=== PATIENT | male | born 1975 | race African-American/Black ===

== ENCOUNTER 2017-10-01 09:14 | Emergency (ER) | payer OTHER ==
[2017-10-01 09:29] VITALS: BP 168/87; PULSE 58; RESP 20; TEMP 98
--- NOTE | 2017-10-01 10:03 | ED ---
URI HPI - General Chief Complaint: Upper Respiratory Infection Stated Complaint: Congestion Time Seen by Provider: 10/01/17 09:44 Source: patient, RN notes reviewed Mode of arrival: ambulatory Limitations: no limitations - History of Present Illness Initial Comments: This a 42-year-old male presents emergency Department chief complaint of sinus congestion, cough and congestion congestion. Patient states symptoms are present for 4 days worsening. He has tried [id number] cough and cold medications no relief. Patient states that he's had fevers and chills at home. He has no prior medical history. Denies any lung disease. Patient states cough is productive with phlegm. No sick contacts. - Related Data Home Medications Medication Instructions Recorded Confirmed Acetaminophen [Tylenol] 1,000 mg PO Q6H PRN 10/01/17 10/01/17 Previous Rx's Medication Instructions Recorded Amoxicillin/Potassium Clav 1 tab PO Q12HR #20 tab 10/01/17 [Augmentin 875-125 Tablet] predniSONE 50 mg PO DAILY #5 tab 10/01/17 Allergies Allergy/AdvReac Type Severity Reaction Status Date / Time No Known Allergies Allergy Verified 10/01/17 09:45 Review of Systems ROS Statement: Those systems with pertinent positive or pertinent negative responses have been documented in the HPI. ROS Other: All systems not noted in ROS Statement are negative. Past Medical History Past Medical History: No Reported History History of Any Multi-Drug Resistant Organisms: None Reported Past Surgical History: Orthopedic Surgery Past Psychological History: No Psychological Hx Reported Smoking Status: Current every day smoker Past Alcohol Use History: Occasional Past Drug Use History: Marijuana General Exam Limitations: no limitations General appearance: alert, in no apparent distress Head exam: Present: atraumatic, normocephalic, normal inspection Eye exam: Present: normal appearance, PERRL, EOMI. Absent: scleral icterus, conjunctival injection, periorbital swelling ENT exam: Present: normal exam, normal oropharynx, mucous membranes moist, TM's normal bilaterally Neck exam: Present: normal inspection, full ROM. Absent: tenderness, meningismus, lymphadenopathy Respiratory exam: Present: normal lung sounds bilaterally. Absent: respiratory distress, wheezes, rales, rhonchi, stridor Cardiovascular Exam: Present: regular rate, normal rhythm, normal heart sounds. Absent: systolic murmur, diastolic murmur, rubs, gallop, clicks GI/Abdominal exam: Present: soft, normal bowel sounds. Absent: distended, tenderness, guarding, rebound, rigid Course Vital Signs 10/01/17 09:28 Temperature 98.0 F Pulse Rate 58 L Respiratory 20 Rate Blood Pressure 168/87 O2 Sat by Pulse 99 Oximetry Medical Decision Making - Medical Decision Making 42-year-old male presented unresponsive for cough and congestion. X-ray reviewed no acute abnormality. Patient will be treated for acute sinusitis and bronchitis. Patient's will be started on Augmentin and prednisone. Return parameters discussed. Disposition Clinical Impression: Bronchitis, Sinusitis Disposition: HOME SELF-CARE Condition: Stable Instructions: Upper Respiratory Infection (ED) Additional Instructions: Please return to the Emergency Department if symptoms worsen or any other concerns. Prescriptions: Amoxicillin/Potassium Clav [Augmentin 875-125 Tablet] 1 tab PO Q12HR #20 tab predniSONE 50 mg PO DAILY #5 tab Is patient prescribed a controlled substance at discharge?: No Referrals: None,Stated [Primary Care Provider] - 1-2 days
--- NOTE | 2017-10-01 10:17 | XR ---
EXAMINATION TYPE: XR chest 2V DATE OF EXAM: 10/01/2017 COMPARISON: NONE HISTORY: Chest pain TECHNIQUE: Frontal and lateral views of the chest are obtained. FINDINGS: There is no focal air space opacity. No evidence for pneumothorax. No pleural effusion. The cardiac silhouette size is within normal limits. The osseous structures are grossly intact. IMPRESSION: 1. No acute cardiopulmonary process.
== END 2017-10-01 10:53 | disposition home or self-care (01) ==
LOC: EC 09:14
DX: J40 Bronchitis, not specified as acute or chronic (principal); J01.90 Acute sinusitis, unspecified; F17.200 Nicotine dependence, unspecified, uncomplicated
CPT/HCPCS: 71046; 99283

== ENCOUNTER 2018-03-09 08:26 | Emergency (ER) | payer OTHER ==
[2018-03-09 08:43] VITALS: BP 133/88; PULSE 63; RESP 18; TEMP 98.6
--- NOTE | 2018-03-09 08:59 | ED ---
URI HPI - General Chief Complaint: Upper Respiratory Infection Stated Complaint: Cold Time Seen by Provider: 03/09/18 08:44 Source: patient, RN notes reviewed Mode of arrival: ambulatory Limitations: no limitations - History of Present Illness Initial Comments: This a 42-year-old male presents emergency Department with chief complaint cough congestion. Patient states started last few days progressively getting worse. Patient feels sinus pressure, sinus congestion. He does have a cough which is productive. Patient states he aches all over. Has no known fever. Denies any ear pain states there is fullness and pressure. Patient states that he has had no relief with [id number] medications. Has NO KNOWN DRUG ALLERGIES. Patient had multiple sick contacts at work. - Related Data Previous Rx's Medication Instructions Recorded Amoxicillin/Potassium Clav 1 tab PO Q12HR #20 tab 03/09/18 [Augmentin 875-125 Tablet] predniSONE 50 mg PO DAILY #5 tab 03/09/18 Allergies Allergy/AdvReac Type Severity Reaction Status Date / Time No Known Allergies Allergy Verified 03/09/18 09:00 Review of Systems ROS Statement: Those systems with pertinent positive or pertinent negative responses have been documented in the HPI. ROS Other: All systems not noted in ROS Statement are negative. Past Medical History Past Medical History: No Reported History History of Any Multi-Drug Resistant Organisms: None Reported Past Surgical History: Orthopedic Surgery Past Psychological History: No Psychological Hx Reported Smoking Status: Current every day smoker Past Alcohol Use History: Daily Past Drug Use History: Marijuana General Exam Limitations: no limitations General appearance: alert, in no apparent distress Head exam: Present: atraumatic, normocephalic, normal inspection Eye exam: Present: normal appearance, PERRL, EOMI. Absent: scleral icterus, conjunctival injection, periorbital swelling ENT exam: Present: normal oropharynx, mucous membranes moist, TM's normal bilaterally, normal external ear exam. Absent: normal exam (Mild sinus tenderness) Neck exam: Present: normal inspection, full ROM. Absent: tenderness, meningismus, lymphadenopathy Respiratory exam: Present: normal lung sounds bilaterally. Absent: respiratory distress, wheezes, rales, rhonchi, stridor Cardiovascular Exam: Present: regular rate, normal rhythm, normal heart sounds. Absent: systolic murmur, diastolic murmur, rubs, gallop, clicks Course Vital Signs 03/09/18 03/09/18 08:39 08:50 Temperature 98.6 F Pulse Rate 63 Respiratory 18 18 Rate Blood Pressure 133/88 O2 Sat by Pulse 100 Oximetry Medical Decision Making - Medical Decision Making 42-year-old male present emergency from for cough and cold-like symptoms. Patient's chest x-ray reviewed no acute abnormality. Patient treated with Augmentin presented this time patient take [id number] cough and cold medications return parameters discussed. Disposition Clinical Impression: Bronchitis, Sinusitis Disposition: HOME SELF-CARE Condition: Stable Instructions: Upper Respiratory Infection (ED) Additional Instructions: Please return to the Emergency Department if symptoms worsen or any other concerns. Prescriptions: Amoxicillin/Potassium Clav [Augmentin 875-125 Tablet] 1 tab PO Q12HR #20 tab predniSONE 50 mg PO DAILY #5 tab Is patient prescribed a controlled substance at d/c from ED?: No Referrals: None,Stated [Primary Care Provider] - 1-2 days Time of Disposition: 10:15
--- NOTE | 2018-03-09 09:21 | XR ---
EXAMINATION TYPE: XR chest 2V DATE OF EXAM: 03/09/2018 COMPARISON: Prior chest x-ray October 01, 2017. HISTORY: Cough congestion and body aches for 3 days. TECHNIQUE: Frontal and lateral views of the chest are obtained. FINDINGS: There is no focal air space opacity, pleural effusion, or pneumothorax seen. The cardiac silhouette size is within normal limits. The osseous structures are intact. IMPRESSION: No suspicious acute pulmonary process. No significant change from prior.
== END 2018-03-09 10:37 | disposition home or self-care (01) ==
LOC: EC 08:26
DX: J40 Bronchitis, not specified as acute or chronic (principal); J32.9 Chronic sinusitis, unspecified; F17.200 Nicotine dependence, unspecified, uncomplicated
CPT/HCPCS: 71046; 99283

== ENCOUNTER 2018-09-07 16:53 | Emergency (ER) | payer BC, OTHER ==
[2018-09-07 16:57] VITALS: TEMP 98.4
[2018-09-07 18:06] LABS: Basophils % (A) 1 %; Eosinophils # (A) 0.2 k/uL (0-0.7); Eosinophils % (A) 3 %; HCT 48.6 % (39.0-53.0); HGB 15.4 gm/dL (13.0-17.5); Lymphocytes # (A) 1.5 k/uL (1.0-4.8); Lymphocytes % (A) 26 %; MCH 23.7 pg (25.0-35.0); MCHC 31.7 g/dL (31.0-37.0); MCV 74.7 fL (80.0-100.0); Mean Platelet Volume 7.3; Microcytosis Slight; Monocytes # (A) 0.3 k/uL (0-1.0); Monocytes % (A) 6 %; Neutrophils # (A) 3.6 k/uL (1.3-7.7); Neutrophils % (A) 62 %; Platelet Count 231 k/uL (150-450); RDW 15.6 % (11.5-15.5); WBC 5.8 k/uL (3.8-10.6)
[2018-09-07 18:11] LABS: Albumin 4.2 g/dL (3.5-5.0); Calcium 9.2 mg/dL (8.4-10.2); Magnesium 1.8 mg/dL (1.6-2.3); Potassium 4.3 mmol/L (3.5-5.1); Total Bilirubin 1.1 mg/dL (0.2-1.3); Total Protein 7.5 g/dL (6.3-8.2)
--- NOTE | 2018-09-07 18:18 | CT ---
EXAMINATION TYPE: CT brain wo con DATE OF EXAM: 09/07/2018 COMPARISON: Headache HISTORY: Headache x [address] DLP: 1084.4 mGycm. Automated Exposure Control for Dose Reduction was Utilized. TECHNIQUE: CT scan of the head is performed without contrast. FINDINGS: Ventricles and sulci appear normal. There is no mass effect nor midline shift. There is no sign of intracranial hemorrhage. Calvarium is intact. IMPRESSION: Normal head CT scan.
--- NOTE | 2018-09-07 18:22 | XR ---
EXAMINATION TYPE: XR chest 2V DATE OF EXAM: 09/07/2018 COMPARISON: 03/09/2018 HISTORY: Hypertension TECHNIQUE: Frontal and lateral views of the chest are obtained. FINDINGS: heart and mediastinum are normal. Lungs are clear. Diaphragm is normal. Bony thorax appear s normal.. IMPRESSION: Normal chest. No change.
--- NOTE | 2018-09-07 19:16 | ED ---
General Adult HPI - General Chief complaint: Recheck/Abnormal Lab/Rx Stated complaint: High blood pressure Time Seen by Provider: 09/07/18 17:00 Source: patient Mode of arrival: ambulatory Limitations: no limitations - History of Present Illness Initial comments: Patient is a 43-year-old male who presents to the hospital with complaint of high blood pressure and headache. The patient was told before by his primary care physician that he did have high blood pressure and would have to have it monitored. He was never started on any medications. States that over the past several weeks his significant other has been taking his blood pressure. She is a medical equipment technician. They noted that his blood pressures have been running in the 150s systolic. Today the patient developed a headache. He denies any visual changes. No neck pain or stiffness. No fevers or chills. Denies any unilateral numbness or weakness. No confusion or slurred speech. The significant other did take the patient's blood pressure and it was noted to be in the 170 systolic. Because of this they did present to the emergency department for evaluation. Patient denies any chest pain or chest palpitations. No shortness of breath. No abdominal pain. Denies any changes in bowel or bladder habits. 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 ROS Other: All systems not noted in ROS Statement are negative. Past Medical History Past Medical History: No Reported History History of Any Multi-Drug Resistant Organisms: None Reported Past Surgical History: Orthopedic Surgery Past Psychological History: No Psychological Hx Reported Smoking Status: Current every day smoker Past Alcohol Use History: Daily Past Drug Use History: Marijuana General Exam Limitations: no limitations General appearance: alert, in no apparent distress Head exam: Present: atraumatic, normocephalic, normal inspection Eye exam: Present: normal appearance, PERRL, EOMI. Absent: scleral icterus, conjunctival injection, periorbital swelling ENT exam: Present: normal exam, mucous membranes moist Neck exam: Present: normal inspection. Absent: tenderness, meningismus, lymphadenopathy Respiratory exam: Present: normal lung sounds bilaterally. Absent: respiratory distress, wheezes, rales, rhonchi, stridor Cardiovascular Exam: Present: regular rate, normal rhythm, normal heart sounds. Absent: systolic murmur, diastolic murmur, rubs, gallop, clicks GI/Abdominal exam: Present: soft, normal bowel sounds. Absent: distended, tenderness, guarding, rebound, rigid Extremities exam: Present: normal inspection, full ROM, normal capillary refill. Absent: tenderness, pedal edema, joint swelling, calf tenderness Back exam: Present: normal inspection Neurological exam: Present: alert, oriented X3, CN II-XII intact Psychiatric exam: Present: normal affect, normal mood Skin exam: Present: warm, dry, intact, normal color. Absent: rash Course Vital Signs 09/07/18 09/07/18 09/07/18 16:54 17:46 18:14 Temperature 98.4 F Pulse Rate 63 Respiratory 18 18 Rate Blood Pressure 157/109 144/110 152/105 O2 Sat by Pulse 99 Oximetry 09/07/18 19:35 Temperature Pulse Rate 88 Respiratory 16 Rate Blood Pressure 147/104 O2 Sat by Pulse Oximetry EKG Findings - EKG Comments: EKG Findings:: EKG demonstrates a normal sinus rhythm - EKG Results: EKG: sinus rhythm Medical Decision Making - Medical Decision Making The patient's was seen in room 17. He did have a 12-lead EKG performed which demonstrated normal sinus rhythm without acute ST segment elevations or depressions concerning for ischemia or infarction. We did recommend laboratory studies, chest x-ray and a CT of the patient's brain. Upon return results they're discuss with the patient. I did discuss the diagnosis, differential d iagnosis and treatment options. I did recommend that the patient follow up with his primary care physician for further treatment options. The patient does not have a primary care physician at this time. He is requesting initiation of a blood pressure medication. I did inform him that I can start him on a low-dose amlodipine however he will have to follow up with the primary care physician for further monitoring. I instructed him that there may be side effects from the medication. His dose may need to be altered or the medication may need to be changed. It is very important that he follow-up. The patient did understand this. They do have a primary care physician in mind. If the patient has any new or worsening symptoms, he should return to the emergency room. The patient was then discharged home in stable condition. - Differential Diagnosis Essential hypertension, cephalgia - Lab Data Result diagrams: 09/07/18 17:45 09/07/18 17:45 Lab Results 09/07/18 09/07/18 09/07/18 Range/Units 17:45 17:45 17:45 WBC 5.8 (3.8-10.6) k/uL RBC 6.50 H (4.30-5.90) m/uL Hgb 15.4 (13.0-17.5) gm/dL Hct 48.6 (39.0-53.0) % MCV 74.7 L (80.0-100.0) fL MCH 23.7 L (25.0-35.0) pg MCHC 31.7 (31.0-37.0) g/dL RDW 15.6 H (11.5-15.5) % Plt Count 231 (150-450) k/uL Neutrophils % 62 % Lymphocytes % 26 % Monocytes % 6 % Eosinophils % 3 % Basophils % 1 % Neutrophils # 3.6 (1.3-7.7) k/uL Lymphocytes # 1.5 (1.0-4.8) k/uL Monocytes # 0.3 (0-1.0) k/uL Eosinophils # 0.2 (0-0.7) k/uL Basophils # 0.0 (0-0.2) k/uL Microcytosis Slight Sodium 140 (137-145) mmol/L Potassium 4.3 (3.5-5.1) mmol/L Chloride 107 (98-107) mmol/L Carbon Dioxide 27 (22-30) mmol/L Anion Gap 6 mmol/L BUN 11 (9-20) mg/dL Creatinine 1.18 (0.66-1.25) mg/dL Est GFR (CKD-EPI)AfAm 86 (>60 ml/min/1.73 sqM) Est GFR (CKD-EPI)NonAf 75 (>60 ml/min/1.73 sqM) Glucose 106 H (74-99) mg/dL Calcium 9.2 (8.4-10.2) mg/dL Magnesium 1.8 (1.6-2.3) mg/dL Total Bilirubin 1.1 (0.2-1.3) mg/dL AST 20 (17-59) U/L ALT 20 L (21-72) U/L Alkaline Phosphatase 81 (38-126) U/L Troponin I <0.012 (0.000-0.034) ng/mL Total Protein 7.5 (6.3-8.2) g/dL Albumin 4.2 (3.5-5.0) g/dL - EKG Data -: EKG Interpreted by Me EKG shows normal: sinus rhythm When compared to previous EKG there are: previous EKG unavailable - Radiology Data Radiology results: report reviewed Chest x-ray and CT of the brain demonstrated no acute findings Disposition Clinical Impression: Headache, Hypertension Disposition: HOME SELF-CARE Condition: Good Instructions (If sedation given, give patient instructions): Chronic Hypertension (ED) Additional Instructions: Please follow-up with your primary care physician regarding your high blood pressure. They will need to monitor the medication that you have been placed on. If you have any new or worsening symptoms or bad side effects to the medication, please stop taking it and return to the emergency room. Prescriptions: amLODIPine [Norvasc] 5 mg PO DAILY #14 tab Is patient prescribed a controlled substance at d/c from ED?: No Referrals: None,Stated [Primary Care Provider] - 1-2 days Time of Disposition: 19:16
[2018-09-07 19:36] VITALS: BP 147/104; PULSE 88; RESP 16
== END 2018-09-07 19:35 | disposition home or self-care (01) ==
LOC: EC 16:53
DX: I10 Essential (primary) hypertension (principal); R51 Headache; F17.200 Nicotine dependence, unspecified, uncomplicated; Z79.899 Other long term (current) drug therapy
CPT/HCPCS: 36415; 70450; 71046; 80053; 83735; 84484; 85025; 93005; 99284

== ENCOUNTER 2019-05-09 20:12 | Emergency (ER) | payer OTHER ==
[2019-05-09 20:16] VITALS: TEMP 98.7
[2019-05-09 21:38] VITALS: BP 166/107; PULSE 59; RESP 18
[2019-05-09] MEDS ORDERED: amLODIPine 5 MG TAB PO STA (21:53)
--- NOTE | 2019-05-09 21:56 | ED ---
General Adult HPI - General Chief complaint: Headache Stated complaint: Blurred Vision, High Blood Pressure Time Seen by Provider: 05/09/19 21:22 Source: patient Mode of arrival: ambulatory Limitations: no limitations - History of Present Illness Initial comments: Bran is a 43-year-old -[place] gentleman with a history of hypertension who presents the emergency department today reporting that he is concerned that his blood pressure is elevated. Patient reports that he hasn't had his antihypertensives were 4-6 weeks. He reports that intermittently over the past month he has experienced occasional headache, blurred vision. He states that today he was feeling unwell discussed it with his encouraged him to come to the ER for evaluation and a new prescriptive shivers antihypertensive. Patient reports he was previously on amlodipine 5 mg daily and his blood pressure was well managed, he reports that he ran out 46 weeks ago doesn't have insurance so he had attempted to buy any more. Patient denies any chest pain or shortness of breath. He denies any vision change day. He reports he has a mild headache but it improved after Excedrin. - Related Data Home Medications Medication Instructions Recorded Confirmed Acetaminophen [Tylenol Extra 1,500 mg PO ONCE 09/07/18 09/07/18 Strength] Previous Rx's Medication Instructions Recorded amLODIPine [Norvasc] 5 mg PO DAILY #14 tab 09/07/18 amLODIPine [Norvasc] 5 mg PO DAILY #28 tab 05/09/19 amLODIPine [Norvasc] 5 mg PO DAILY #30 tab 05/09/19 Allergies Allergy/AdvReac Type Severity Reaction Status Date / Time No Known Allergies Allergy Verified 05/09/19 20:16 Review of Systems ROS Statement: Those systems with pertinent positive or pertinent negative responses have been documented in the HPI. ROS Other: All systems not noted in ROS Statement are negative. Past Medical History Past Medical History: Hypertension History of Any Multi-Drug Resistant Organisms: None Reported Past Surgical History: Orthopedic Surgery Past Psychological History: No Psychological Hx Reported Smoking Status: Current every day smoker Past Alcohol Use History: Daily Past Drug Use History: Marijuana General Exam - General Exam Comments Initial Comments: Physical Exam GENERAL: Patient is well-developed and well-nourished. Patient is nontoxic and well-hydrated and is in no distress. HENT: Normocephalic, Atraumatic. TMs normal bilaterally EYES: PERRL, EOMI No papilledema PULMONARY: Unlabored respirations. No audible rales rhonchi or wheezing was noted. CARDIOVASCULAR: There is a regular rate and rhythm without any murmurs gallops or rubs. ABDOMEN: Soft and nontender with normal bowel sounds. SKIN: Skin is clear with no lesions or rashes and otherwise unremarkable. : Deferred NEUROLOGIC: Patient is alert and oriented x3. Moving all extremities spontaneously MUSCULOSKELETAL: Normal extremities with adequate strength and full range of motion. No lower extremity swelling or edema. No calf tenderness. PSYCHIATRIC: Normal psychiatric evaluation. Limitations: no limitations Course Vital Signs 05/09/19 05/09/19 20:13 21:04 Temperature 98.7 F Pulse Rate 77 59 L Respiratory 20 18 Rate Blood Pressure 164/120 166/107 O2 Sat by Pulse 96 100 Oximetry Medical Decision Making - Medical Decision Making The patient was seen and evaluated history is obtained from the patient Patient was hypertensive on arrival however blood pressures improving. Patient has had a full workup in the past for hypertension, at this time is been noncompliant with medication and experiencing a vague headache. Headache is intermittent improves with Excedrin. At this time the patient is comfortable with the plan for discharge home. Repeat P dose of amlodipine was ordered here in the emergency department. A perception for 4 weeks of amlodipine was prescribed. All questions pertaining care were answered return parameters discussed patient a trauma stable condition. Disposition Clinical Impression: Hypertension Disposition: HOME SELF-CARE Condition: Stable Instructions (If sedation given, give patient instructions): Chronic Hypertension (DC) Prescriptions: amLODIPine [Norvasc] 5 mg PO DAILY #28 tab amLODIPine [Norvasc] 5 mg PO DAILY #30 tab Is patient prescribed a controlled substance at d/c from ED?: No Referrals: None,Stated [Primary Care Provider] - 1-2 days
== END 2019-05-09 22:04 | disposition home or self-care (01) ==
LOC: EC 20:12
DX: I10 Essential (primary) hypertension (principal); R51 Headache; F17.200 Nicotine dependence, unspecified, uncomplicated; Z91.14 Patient's other noncompliance with medication regimen
CPT/HCPCS: 99283

== ENCOUNTER 2019-08-09 07:09 | Emergency (ER) | payer OTHER ==
[2019-08-09 07:18] VITALS: TEMP 99.4
[2019-08-09] MEDS ORDERED: IPRATROPIUM-ALBUTEROL 3 ML NEB INHALATION STA (07:30)
[2019-08-09] MEDS ORDERED: KETOROLAC 30 MG/ML 1 ML VIAL IVP STA (07:30)
[2019-08-09] MEDS ORDERED: KETOROLAC 30 MG/ML 1 ML VIAL IM STA (07:30)
[2019-08-09] MEDS ORDERED: DEXAMETHASONE SOD PHOSPHATE 10 MG/ML 1 ML VIAL IV STA (07:31)
[2019-08-09] MEDS ORDERED: SODIUM CHLORIDE 0.9% 1,000 ML IV STA (07:31)
--- NOTE | 2019-08-09 07:34 | ED ---
General Adult HPI - General Chief complaint: Upper Respiratory Infection Stated complaint: Body ache, headache Time Seen by Provider: 08/09/19 07:20 Source: patient Mode of arrival: ambulatory Limitations: no limitations - History of Present Illness Initial comments: Dictation was produced using [employer] dictation software. please excuse any grammatical, word or spelling errors. Chief Complaint: 44-year-old male past medical history of asthma I, tobacco abuse presents with cough, cold and myalgias. History of Present Illness: 44-year-old male. He presents to the emergency Department with his significant other. Over the last 3-4 days patient has been suffering from urinary type symptoms. 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 He states that multiple individuals at work had similar symptoms. Patient complains of cough, runny nose and total body pain. He has been taking [id number] flu medication. Today came to the emergency department because he had difficulty sleeping because his symptoms became acutely worse. Denies any nausea or vomiting. No dysuria. The ROS documented in this emergency department record has been reviewed and confirmed by me. Those systems with pertinent positive or negative responses have been documented in the HPI. All other systems are other negative and/or noncontributory. PHYSICAL EXAM: General Impression: Alert and oriented x3, not in acute distress HEENT: Normocephalic atraumatic, extra-ocular movements intact, pupils equal and reactive to light bilaterally, mucous membranes moist. Cardiovascular: Heart regular rate and rhythm, S1&S2 audible, no murmurs, rubs or gallops Chest: Mild diffuse wheezing Abdomen: Bowel sounds present, abdomen soft, non-tender, non-distended, no organomegaly Musculoskeletal: Pulses present and equal in all extremities, no peripheral edema Motor: no focal deficits noted Neurological: CN II-XII grossly intact, no focal motor or sensory deficits noted Skin: Intact with no visualized rashes Psych: Normal affect and mood ED course: 44-year-old male presents to emergency Department with chief complaint of URI type symptoms. Vital signs upon arrival are within acceptable limits. Patient treated with Decadron, Rocephin and Toradol. Patient also given fluids. Reevaluation shows improved symptoms. Clinical presentation consistent with acute bronchitis. Patient will be discharged with prescription for Zithromax. He is told to follow up with primary care physician upon discharge. - Related Data Home Medications Medication Instructions Recorded Confirmed Acetaminophen [Tylenol Extra 1,500 mg PO ONCE 09/07/18 09/07/18 Strength] Previous Rx's Medication Instructions Recorded amLODIPine [Norvasc] 5 mg PO DAILY #14 tab 09/07/18 amLODIPine [Norvasc] 5 mg PO DAILY #28 tab 05/09/19 amLODIPine [Norvasc] 5 mg PO DAILY #30 tab 05/09/19 Azithromycin [Zithromax Z-pack] 0 mg PO DIRECTED #6 tab 08/09/19 Allergies Allergy/AdvReac Type Severity Reaction Status Date / Time No Known Allergies Allergy Verified 08/09/19 07:18 Review of Systems ROS Statement: Those systems with pertinent positive or pertinent negative responses have been documented in the HPI. ROS Other: All systems not noted in ROS Statement are negative. Past Medical History Past Medical History: Hypertension History of Any Multi-Drug Resistant Organisms: None Reported Past Surgical History: Orthopedic Surgery Additional Past Surgical History / Comment(s): ankle surg Past Psychological History: No Psychological Hx Reported Smoking Status: Current every day smoker Past Alcohol Use History: Daily Past Drug Use History: Marijuana General Exam Limitations: no limitations Course Vital Signs 08/09/19 08/09/19 08/09/19 07:15 08:00 08:05 Temperature 99.4 F Pulse Rate 85 88 Respiratory 22 16 Rate Blood Pressure 142/87 O2 Sat by Pulse 96 Oximetry 08/09/19 08:13 Temperature Pulse Rate 88 Respiratory Rate Blood Pressure O2 Sat by Pulse Oximetry Medical Decision Making - Lab Data Lab Results 08/09/19 Range/Units 07:30 Influenza Type A RNA Not Detected (Not Detectd) Influenza Type B (PCR) Not Detected (Not Detectd) Disposition Clinical Impression: Bronchitis Disposition: HOME SELF-CARE Condition: Good Instructions (If sedation given, give patient instructions): Upper Respiratory Infection (ED) Additional Instructions: Prescriptions were sent to your preferred pharmacy for pickup Prescriptions: Azithromycin [Zithromax Z-pack] 0 mg PO DIRECTED #6 tab Is patient prescribed a controlled substance at d/c from ED?: No Referrals: Kamila Singh MD [Primary Care Provider] - 1-2 days Time of Disposition: 09:46
[2019-08-09 08:01] VITALS: RESP 16
--- NOTE | 2019-08-09 08:05 | XR ---
EXAMINATION TYPE: XR chest 2V DATE OF EXAM: 08/09/2019 COMPARISON: 09/07/2018 HISTORY: 44-year-old male with cough TECHNIQUE: PA and lateral views FINDINGS: The cardiomediastinal silhouette, aorta, and pulmonary vasculature are within normal limits. Lungs an d pleural spaces are clear. IMPRESSION: No acute cardiopulmonary process.
[2019-08-09] MEDS ORDERED: cefTRIAXone IN SWFI 1,000 MG/10 ML SYRINGE IVP STA (09:23)
[2019-08-09 10:28] VITALS: BP 132/76; PULSE 76
== END 2019-08-09 10:27 | disposition home or self-care (01) ==
LOC: EC 07:09
DX: J40 Bronchitis, not specified as acute or chronic (principal); F17.200 Nicotine dependence, unspecified, uncomplicated; Z87.09 Personal history of other diseases of the respiratory system; Z53.8 Procedure and treatment not carried out for other reasons
CPT/HCPCS: 94640; 87502; 71046; 99284; 96374; 96375 ×2; 96361; J1100; J0696; J1885

== ENCOUNTER → 2020-04-25 | Outpatient (CLI) | payer OTHER | END | disposition home or self-care (01) | LOC: LABWHC1 11:30 | PROVIDERS: ATTEND Emergency Medicine | DX: Z20.828 Contact with and (suspected) exposure to other viral communicable diseases (principal) | CPT/HCPCS: U0003; C9803 ==

== ENCOUNTER → 2020-07-16 | Outpatient (CLI) | payer OTHER | END | disposition home or self-care (01) | LOC: LABWHC1 16:13 | PROVIDERS: ATTEND Emergency Medicine | DX: Z20.822 Contact with and (suspected) exposure to COVID-19 (principal) | CPT/HCPCS: U0003; C9803 ==

== ENCOUNTER → 2020-10-26 | Outpatient (CLI) | payer OTHER | END | disposition home or self-care (01) | LOC: LABWHC1 16:34 | PROVIDERS: ATTEND Emergency Medicine | DX: Z20.822 Contact with and (suspected) exposure to COVID-19 (principal) | CPT/HCPCS: U0003; C9803; U0005 ==

== ENCOUNTER → 2023-10-30 | Outpatient (CLI) | payer BC, OTHER ==
--- NOTE | 2023-10-31 13:51 | MR ---
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 MR contrast: IV Contrast: cc , None. FINDINGS: CERVICAL: Alignment: The cervical vertebral bodies have preserved heights. Alignment is within normal limits gi chivo patient positioning. Bones: Scattered Modic endplate changes with osteophytes and disc space narrowing. Multilevel degener ative disc disease is noted and most pronounced at the C5-C7 vertebral levels. Cord: The spinal cord is unremarkable with regards to their signal intensity and morphology. Discs: Multilevel disc desiccation is present. C2-C3: No significant disc pathology. The spinal canal is patent. No neural foraminal stenosis. C3-C4: No significant disc pathology. The spinal canal is patent. Bilateral facet and uncovertebral joint arthropathy are present with mild right neural foraminal stenosis. The left neural foramen is p atent. C4-C5: A disc osteophyte complex is present with moderate to severe spinal canal stenosis. Bilateral facet and uncovertebral joint arthropathy are present with mild to moderate bilateral neural foramin al stenosis. C5-C6: No significant disc pathology. The spinal canal is patent. No neural foraminal stenosis. C6-C7: A disc osteophyte complex is present which minimally narrows the ventral subarachnoid space. Bilateral facet and uncovertebral joint arthropathy are present with moderate right and mild to mode rate left neural foraminal stenosis. C7-T1: No significant disc pathology. The spinal canal is patent. No neural foraminal stenosis. Other: None. LUMBAR: Alignment: The lumbar vertebral bodies have preserved heights and alignment. Cord: The conus medullaris and the distal spinal cord appear unremarkable with regards to their signa l intensity and morphology. Bones/Discs: Mild degeneration changes throughout the spine with osteophyte formation and facet joint arthropathy. Findings worse at L5-S1 with Modic endplate changes also present and reactive edema. Intervertebral disc signal is maintained. T12-L1: No evidence of significant spinal canal stenosis or neural foraminal stenosis. L1-L2: No evidence of significant spinal canal stenosis. Facet joint arthropathy mild bilateral neura l foraminal stenosis. L2-L3: No evidence of significant spinal canal stenosis. Facet joint arthropathy mild bilateral neura l foraminal stenosis. L3-L4: No evidence of significant spinal canal stenosis. Facet joint arthropathy mild bilateral neura l foraminal stenosis. L4-L5: Disc bulge and facet joint arthropathy result in mild spinal canal and mild bilateral neural f oraminal stenosis. L5-S1: The disc has a rounded posterior morphology without significant spinal canal stenosis. Facet j oint arthropathy with moderate to severe bilateral neural foraminal stenosis. No significant spinal canal or neural foraminal stenosis in the remainder of the visualized levels. Other findings: None. IMPRESSION: 1. C4-C5 moderate to severe spinal canal stenosis. 2. No foraminal stenosis worse in the cervical spine area C6-C7 with moderate right neural foraminal stenosis. 3. L5-S1 moderate to severe bilateral neural foraminal stenosis. 4. Multilevel disc degeneration changes throughout the spine which is mild throughout most of the sp ine.
== END | disposition home or self-care (01) ==
LOC: RADMRIMAIN 18:07
PROVIDERS: ATTEND Physical Medicine & Rehabilitation
DX: M99.73 Connective tissue and disc stenosis of intervertebral foramina of lumbar region (principal); M48.02 Spinal stenosis, cervical region; M51.17 Intervertebral disc disorders with radiculopathy, lumbosacral region; M47.27 Other spondylosis with radiculopathy, lumbosacral region; M43.16 Spondylolisthesis, lumbar region; G56.01 Carpal tunnel syndrome, right upper limb; M47.22 Other spondylosis with radiculopathy, cervical region; M50.121 Cervical disc disorder at C4-C5 level with radiculopathy; M50.123 Cervical disc disorder at C6-C7 level with radiculopathy; M50.122 Cervical disc disorder at C5-C6 level with radiculopathy; M50.13 Cervical disc disorder with radiculopathy, cervicothoracic region; M43.12 Spondylolisthesis, cervical region
CPT/HCPCS: 72141; 72148